=== PATIENT | male | born 1980 | race Caucasian/White ===

== ENCOUNTER 2017-06-16 20:12 | Emergency (ER) | payer OTHER ==
[~2017-06-16] VITALS: Ht 188 cm; Wt 112.0 kg
[~2017-06-16 20:12] MED LIST: APAP/CODEINE ELI5 M1 PO; MEDROLDOSEPACK PO; NAPROSYN500 M1 PO; NOHOMEMEDICATIONS; NORCO 5-325 TA1 EACH PO; PROAIR HFA8.5 GM INH; PROMETHAZINE-D120 ML PO; TOPROL XL25 MG PO; TRAMADOL 50 MG50 MG PO; XANAX 0.25 MG0.25 MG PO; ZPAK PO
[2017-06-16 20:18] VITALS: BP 134/84
[2017-06-16 20:59] LABS: INFLUENZA A ANTIGEN None Detected (None Detect); INFLUENZA B ANTIGEN None Detected (None Detect)
[2017-06-16] MEDS ORDERED: ZPAK PO (21:13)
[2017-06-16] MEDS ORDERED: PREDNISONE 20 M20 M1 PO (21:13)
== END 2017-06-16 21:20 | disposition home or self-care (01) ==
LOC: M.ERS 20:12
PROVIDERS: Family Medicine
DX: J06.9 Acute upper respiratory infection, unspecified (principal); I10 Essential (primary) hypertension; F41.9 Anxiety disorder, unspecified

== ENCOUNTER 2017-07-06 15:33 | Emergency (ER) | payer OTHER ==
[~2017-07-06] VITALS: Ht 188 cm; Wt 147.4 kg
[~2017-07-06 15:33] MED LIST changes: +PREDNISONE 20 M20 M1 PO
[2017-07-06 16:00] LABS: ABSOLUTE BASOPHILS 0.1 thou/uL (0.0-0.2); ABSOLUTE EOSINOPHILS 0.1 thou/uL (0.0-0.7); ABSOLUTE LYMPHOCYTES 2.5 thou/uL (0.8-5.3); ABSOLUTE MONOCYTES 0.9 thou/uL (0.0-1.2); ABSOLUTE NEUTROPHILS 3.3 thou/uL (1.6-8.1); BASOPHILS 1.2 %; EOSINOPHILS 1.3 %; HEMOGLOBIN 15.5 gm/dL (14.0-18.0); LYMPHOCYTES 36.5 %; MCHC 34.4 g/dL (28.0-37.0); MCV 87.2 fL (80.0-100.0); MONOCYTES 13.1 %; MPV 9.4 fl. (7.2-11.1); NUCLEATED RBCS 0 /100WBC; PLATELET COUNT* 225 thou/uL (150-400); POLYS 47.9 %; RBC 5.16 mil/uL (4.50-6.00); RDW-CV 13.4 % (10.5-14.5); WBC 6.8 thou/uL (4.0-11.0)
[2017-07-06 16:09] LABS: ANION GAP 6 mmol/L (7-16); APTT 28.9 Seconds (25.0-31.3); BUN 7 mg/dL (7-18); CALCIUM 9.2 mg/dL (8.5-10.1); CHLORIDE 105 mmol/L (98-107); CO2 30 mmol/L (21-32); CREATININE 0.8 mg/dL (0.6-1.3); GLUCOSE 85 mg/dL (70-99); POTASSIUM 3.9 mmol/L (3.5-5.1); PROTIME 10.2 Seconds (9.20-11.50); SODIUM 141 mmol/L (136-145)
[2017-07-06 16:19] LABS: ALBUMIN 3.7 g/dL (3.4-5.0); ALKALINE PHOSPHATASE 58 U/L (46-116); LIPASE 146 U/L (73-393); SGOT 25 U/L (15-37); SGPT 46 U/L (30-65); TOTAL BILIRUBIN 0.4 mg/dL (<0.1-1.0); TOTAL PROTEIN 7.4 g/dL (6.4-8.2); TROPONIN-I LEVEL <0.06 ng/mL (<0.06)
[2017-07-06 16:24] LABS: INFLUENZA A ANTIGEN None Detected (None Detect); INFLUENZA B ANTIGEN None Detected (None Detect)
[2017-07-06 16:50] VITALS: BP 136/64
--- NOTE | 2017-07-07 11:57 | EKG ---
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 : 1980 Requested By: Home Donovan Order Number: [id number] MD: Jason Aguilar Measurements Intervals [place] Rate: 80 P: 44 NM: 153 QRS: -22 QRSD: 91 T: 116 QT: 354 QTc: 409 Interpretive Statements Sinus rhythm LVH with secondary repolarization abnormality Borderline ST elevation, inferior leads No previous ECG available for comparison Electronically Signed On 07-07-2017 11:56:52 FOREIGN LANGUAGE TEACHER by Jason Aguilar [email or web address] <ELECTRONICALLY SIGNED> By: Jason Aguilar MD, [facility] 07/07/17 1156 1547 1547 Jason Aguilar MD, FACC /EPI
== END 2017-07-06 16:51 | disposition home or self-care (01) ==
LOC: M.ERS 15:33
PROVIDERS: Emergency Medicine
DX: R06.4 Hyperventilation (principal); F41.9 Anxiety disorder, unspecified; E78.00 Pure hypercholesterolemia, unspecified; F17.210 Nicotine dependence, cigarettes, uncomplicated

== ENCOUNTER 2018-04-05 21:18 | Emergency (ER) | payer OTHER ==
[~2018-04-05] VITALS: Ht 188 cm; Wt 136.1 kg
[2018-04-05 21:42] LABS: ABSOLUTE BASOPHILS 0.1 thou/uL (0.0-0.2); ABSOLUTE EOSINOPHILS 0.1 thou/uL (0.0-0.7); ABSOLUTE LYMPHOCYTES 3.7 thou/uL (0.8-5.3); ABSOLUTE NEUTROPHILS 3.8 thou/uL (1.6-8.1); BASOPHILS 1.4 %; EOSINOPHILS 1.2 %; HEMATOCRIT 45.3 % (42.0-52.0); HEMOGLOBIN 15.6 gm/dL (14.0-18.0); LYMPHOCYTES 42.8 %; MCH 30.6 pg (26.0-34.0); MCHC 34.4 g/dL (28.0-37.0); MONOCYTES 11.2 %; MPV 9.3 fl. (7.2-11.1); NUCLEATED RBCS 0 /100WBC; PLATELET COUNT* 229 thou/uL (150-400); POLYS 43.4 %; RBC 5.09 mil/uL (4.50-6.00); RDW-CV 13.1 % (10.5-14.5); WBC 8.7 thou/uL (4.0-11.0)
[2018-04-05 21:50] LABS: ANION GAP 6 mmol/L (7-16); BUN 8 mg/dL (7-18); CALCIUM 9.4 mg/dL (8.5-10.1); CHLORIDE 104 mmol/L (98-107); CO2 30 mmol/L (21-32); CREATININE 0.8 mg/dL (0.6-1.3); GLUCOSE 91 mg/dL (70-99); POTASSIUM 3.8 mmol/L (3.5-5.1); SODIUM 140 mmol/L (136-145)
[2018-04-05 22:01] LABS: ALBUMIN 3.6 g/dL (3.4-5.0); ALKALINE PHOSPHATASE 60 U/L (46-116); NT-PRO BRAIN NAT PEPTIDE 26 pg/mL (<300); SGOT 18 U/L (15-37); SGPT 38 U/L (30-65); TOTAL BILIRUBIN 0.4 mg/dL (<0.1-1.0); TOTAL PROTEIN 7.3 g/dL (6.4-8.2); TROPONIN-I LEVEL <0.06 ng/mL (<0.06)
[2018-04-05 22:17] LABS: PROTIME 10.2 Seconds (9.20-11.50)
[2018-04-05 22:50] VITALS: BP 144/78
--- NOTE | 2018-04-06 12:37 | EKG ---
[place] [address] ELECTROCARDIOGRAM REPORT Name: DESMOND TORRES Room: [facility] William#: [id number] Admission: 04/05/18 Attend Phys: Discharge: 04/05/18 Date of : 82 Report #: [id number] THIS REPORT FOR: //name// 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 : 1980 Requested By: Nona Costello Order Number: [id number] MD: Jason Aguilar Measurements Intervals [place] Rate: 83 P: 34 MS: 145 QRS: 33 QRSD: 105 T: 37 QT: 368 QTc: 433 Interpretive Statements Sinus rhythm Compared to ECG 07/06/2017 15:47:53 Left ventricular hypertrophy no longer present ST (T wave) deviation no longer present Electronically Signed On 04-06-2018 12:37:42 GRIP BOSS by Jason Aguilar [email or web address] <ELECTRONICALLY SIGNED> By: Jason Aguilar MD, [facility] 04/06/18 1237 20 20 Jason Aguilar MD, FACC /EPI
== END 2018-04-05 22:50 | disposition home or self-care (01) ==
LOC: M.ERS 21:18
PROVIDERS: Emergency Medicine
DX: R07.89 Other chest pain (principal); F41.9 Anxiety disorder, unspecified; F17.210 Nicotine dependence, cigarettes, uncomplicated

== ENCOUNTER 2019-01-10 20:12 | Emergency (ER) | payer OTHER ==
[~2019-01-10] VITALS: Ht 188 cm; Wt 181.4 kg
[2019-01-10 21:05] LABS: ABSOLUTE BASOPHILS 0.1 thou/uL (0.0-0.2); ABSOLUTE EOSINOPHILS 0.2 thou/uL (0.0-0.7); ABSOLUTE LYMPHOCYTES 3.2 thou/uL (0.8-5.3); ABSOLUTE MONOCYTES 1.5 thou/uL (0.0-1.2); ABSOLUTE NEUTROPHILS 6.1 thou/uL (1.6-8.1); BASOPHILS 1.1 %; EOSINOPHILS 1.9 %; HEMOGLOBIN 15.4 gm/dL (14.0-18.0); LYMPHOCYTES 28.6 %; MCH 30.4 pg (26.0-34.0); MCHC 34.2 g/dL (28.0-37.0); MONOCYTES 13.6 %; MPV 9.6 fl. (7.2-11.1); NUCLEATED RBCS 0 /100WBC; PLATELET COUNT* 193 thou/uL (150-400); POLYS 54.8 %; RBC 5.06 mil/uL (4.50-6.00); RDW-CV 13.1 % (10.5-14.5); WBC 11.2 thou/uL (4.0-11.0)
[2019-01-10 21:14] LABS: URINE BILIRUBIN NEGATIVE (Negative); URINE BLOOD NEGATIVE (Negative); URINE CLARITY CLEAR; URINE COLOR YELLOW; URINE GLUCOSE-RANDOM NEGATIVE (Negative); URINE KETONES NEGATIVE (Negative); URINE LEUKOCYTES-REFLEX NEGATIVE (Negative); URINE NITRITE-REFLEX NEGATIVE (Negative); URINE PROTEIN NEGATIVE (Negative); URINE UROBILINOGEN 0.2 E.U./dl (0.2-1.0)
[2019-01-10 21:21] LABS: CALCIUM 8.8 mg/dL (8.5-10.1); CREATININE 0.8 mg/dL (0.6-1.3); POTASSIUM 3.8 mmol/L (3.5-5.1)
[2019-01-10 21:29] LABS: ALBUMIN 3.4 g/dL (3.4-5.0); TOTAL BILIRUBIN 0.4 mg/dL (<0.1-1.0); TOTAL PROTEIN 6.8 g/dL (6.4-8.2)
[2019-01-10] MEDS ORDERED: NORCO 5-325 TA1 EAC1 PO (22:35)
[2019-01-10 22:45] VITALS: BP 133/84
== END 2019-01-10 22:46 | disposition home or self-care (01) ==
LOC: M.ERS 20:12
PROVIDERS: Physician Assistant
DX: R10.31 Right lower quadrant pain (principal); F41.9 Anxiety disorder, unspecified

== ENCOUNTER 2019-10-23 20:17 | Emergency (ER) | payer OTHER ==
[~2019-10-23] VITALS: Ht 188 cm; Wt 194.6 kg
[~2019-10-23 20:17] MED LIST changes: +NORCO 5-325 TA1 EAC1 PO
[2019-10-23 20:58] LABS: ABSOLUTE BASOPHILS 0.1 thou/uL (0.0-0.2); ABSOLUTE EOSINOPHILS 0.2 thou/uL (0.0-0.7); ABSOLUTE MONOCYTES 0.9 thou/uL (0.0-1.2); ABSOLUTE NEUTROPHILS 3.2 thou/uL (1.6-8.1); BASOPHILS 1.4 %; EOSINOPHILS 2.1 %; HEMATOCRIT 43.7 % (42.0-52.0); HEMOGLOBIN 15.1 gm/dL (14.0-18.0); LYMPHOCYTES 40.7 %; MCH 30.9 pg (26.0-34.0); MCHC 34.6 g/dL (28.0-37.0); MCV 89.4 fL (80.0-100.0); MONOCYTES 11.8 %; MPV 9.2 fl. (7.2-11.1); NUCLEATED RBCS 0 /100WBC; PLATELET COUNT* 205 thou/uL (150-400); RBC 4.88 mil/uL (4.50-6.00); RDW-CV 13.3 % (10.5-14.5); WBC 7.3 thou/uL (4.0-11.0)
[2019-10-23 21:08] LABS: CALCIUM 8.5 mg/dL (8.5-10.1); CREATININE 0.8 mg/dL (0.6-1.3); POTASSIUM 4.1 mmol/L (3.5-5.1)
[2019-10-23 21:18] LABS: ALBUMIN 3.3 g/dL (3.4-5.0); MAGNESIUM 1.7 mg/dL (1.8-2.4); TOTAL BILIRUBIN 0.3 mg/dL (<0.1-1.0); TOTAL PROTEIN 7.1 g/dL (6.4-8.2)
[2019-10-23 21:38] LABS: URINE BILIRUBIN NEGATIVE (Negative); URINE BLOOD NEGATIVE (Negative); URINE CLARITY CLEAR; URINE COLOR YELLOW; URINE GLUCOSE-RANDOM NEGATIVE (Negative); URINE KETONES NEGATIVE (Negative); URINE LEUKOCYTES-REFLEX NEGATIVE (Negative); URINE NITRITE-REFLEX NEGATIVE (Negative); URINE PROTEIN NEGATIVE (Negative); URINE SPECIFIC GRAVITY 1.015 (1.005-1.030); URINE UROBILINOGEN 0.2 E.U./dl (0.2-1.0)
[2019-10-23] MEDS ORDERED: FLEXERIL PO (23:38)
[2019-10-23] MEDS ORDERED: IBUPROFEN 800800 M1 PO (23:38)
[2019-10-23 23:51] VITALS: BP 146/72
--- NOTE | 2019-10-24 08:47 | EKG ---
[place] [address] ELECTROCARDIOGRAM REPORT Name: DESMOND TORRES Room: [facility]#: [id number] Admission: 10/23/19 Attend Phys: Discharge: 10/23/19 Date of : 82 Date of Service: 10/23/192026 Report #: [id number] THIS REPORT FOR: //name// [facility] ED Test Date: 2019-10-23 Test Time: 20:27:38 Pat Name: DESMOND TORRES Department: Room: Gender: Food Safety Auditor: KESHIA : 1980 Requested By: Spencer Stark Order Number: [id number] MD: Jose Hearn Measurements Intervals [place] Rate: 84 P: 19 OK: 152 QRS: 28 QRSD: 104 T: 26 QT: 377 QTc: 446 Interpretive Statements Sinus rhythm Compared to ECG 04/05/2018 21:21:50 No significant changes Electronically Signed On 10-24-2019 8:45:52 CDT by Jose Hearn [email or web address] <ELECTRONICALLY SIGNED> By: Jose Hearn MD, [facility] 0545 26 26 Jose Hearn MD, [facility] /EPI
== END 2019-10-23 23:51 | disposition home or self-care (01) ==
LOC: M.ERS 20:17
PROVIDERS: Emergency Medicine Emergency Medical Services
DX: M79.672 Pain in left foot (principal); M79.671 Pain in right foot; R07.89 Other chest pain; F41.9 Anxiety disorder, unspecified

== ENCOUNTER 2020-03-28 15:58 | Emergency (ER) | payer OTHER, MEDICAID ==
[~2020-03-28] VITALS: Ht 188 cm; Wt 206.8 kg
[~2020-03-28 15:58] MED LIST changes: +FLEXERIL PO; +IBUPROFEN 800800 M1 PO
[2020-03-28 16:10] VITALS: BP 144/76
[2020-03-28] MEDS ORDERED: LIPITOR 20 MG T20 M1 PO (16:17)
[2020-03-28] MEDS ORDERED: CARVEDILOL12.5 MG PO (16:17)
[2020-03-28] MEDS ORDERED: ASA81BEC PO (16:17)
[2020-03-28] MEDS ORDERED: LASIX 40 MG TAB40 MG PO (16:17)
[2020-03-28] MEDS ORDERED: PROAIR HFA8.5 GM INH (16:28)
== END 2020-03-28 16:52 | disposition home or self-care (01) ==
LOC: M.ERS 15:58
DX: U07.1 COVID-19 (principal); F17.210 Nicotine dependence, cigarettes, uncomplicated

== ENCOUNTER 2021-07-24 11:26 | Observation (INO) | payer OTHER, MEDICAID ==
[~2021-07-24] VITALS: Ht 188 cm; Wt 217.7 kg
[~2021-07-24 11:26] MED LIST changes: +ASA81BEC PO; +CARVEDILOL12.5 MG PO; +LASIX 40 MG TAB40 MG PO; +LIPITOR 20 MG T20 M1 PO
[2021-07-24 11:34] VITALS: BP 137/67
[2021-07-24 12:13] LABS: ABSOLUTE BASOPHILS 0.1 thou/uL (0.0-0.2); ABSOLUTE EOSINOPHILS 0.1 thou/uL (0.0-0.7); ABSOLUTE LYMPHOCYTES 2.4 thou/uL (0.8-5.3); ABSOLUTE MONOCYTES 0.7 thou/uL (0.0-1.2); ABSOLUTE NEUTROPHILS 4.1 thou/uL (1.6-8.1); BASOPHILS 1.2 %; EOSINOPHILS 1.3 %; HEMATOCRIT 47.4 % (42.0-52.0); HEMOGLOBIN 16.1 gm/dL (14.0-18.0); LYMPHOCYTES 32.7 %; MCH 30.6 pg (26.0-34.0); MONOCYTES 9.2 %; NUCLEATED RBCS 0 /100WBC; PLATELET COUNT* 209 thou/uL (150-400); POLYS 55.6 %; RBC 5.26 mil/uL (4.50-6.00); WBC 7.5 thou/uL (4.0-11.0)
[2021-07-24 12:26] LABS: CALCIUM 9.1 mg/dL (8.5-10.1); POTASSIUM 4.2 mmol/L (3.5-5.1)
[2021-07-24 12:36] LABS: ALBUMIN 3.5 g/dL (3.4-5.0); MAGNESIUM 1.7 mg/dL (1.8-2.4); TOTAL BILIRUBIN 0.6 mg/dL (<0.1-1.0); TOTAL PROTEIN 7.2 g/dL (6.4-8.2)
[2021-07-24 14:45] VITALS: BP 134/96
[2021-07-24 18:45] VITALS: BP 131/78
[2021-07-24 20:40] VITALS: BP 121/71
[2021-07-24 21:00] VITALS: BP 145/77
[2021-07-24] MEDS ORDERED: TORSEMIDE100 MG PO ×2 (21:57→21:58)
[2021-07-24] MEDS ORDERED: COREG25 M1 PO (22:00)
[2021-07-25] VITALS: BP 112/69; BP 135/88
[2021-07-25 04:00] VITALS: BP 99/67
[2021-07-25 05:24] LABS: ABSOLUTE BASOPHILS 0.1 thou/uL (0.0-0.2); ABSOLUTE EOSINOPHILS 0.1 thou/uL (0.0-0.7); ABSOLUTE LYMPHOCYTES 3.2 thou/uL (0.8-5.3); ABSOLUTE MONOCYTES 0.9 thou/uL (0.0-1.2); ABSOLUTE NEUTROPHILS 3.9 thou/uL (1.6-8.1); EOSINOPHILS 1.5 %; HEMOGLOBIN 15.3 gm/dL (14.0-18.0); LYMPHOCYTES 38.4 %; MCH 30.6 pg (26.0-34.0); MCHC 33.9 g/dL (28.0-37.0); MCV 90.1 fL (80.0-100.0); MONOCYTES 11.3 %; MPV 9.5 fl. (7.2-11.1); NUCLEATED RBCS 0 /100WBC; PLATELET COUNT* 187 thou/uL (150-400); POLYS 47.8 %; RBC 4.99 mil/uL (4.50-6.00); RDW-CV 14.4 % (10.5-14.5); WBC 8.2 thou/uL (4.0-11.0)
[2021-07-25 05:25] LABS: CALCIUM 8.9 mg/dL (8.5-10.1); CREATININE 0.8 mg/dL (0.6-1.3); POTASSIUM 3.6 mmol/L (3.5-5.1)
[2021-07-25 08:00] VITALS: BP 136/93
[2021-07-25] MEDS ORDERED: MAG-OXIDE400 MG PO (10:25)
[2021-07-25 11:20] VITALS: BP 127/75
--- NOTE | 2021-07-25 11:20 | EKG ---
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 Manager: JOSE : 1980 Requested By: Spencer Stark Order Number: [id number] MD: Jason Aguilar Measurements Intervals [place] Rate: 154 P: 0 UT: 39 QRS: -53 QRSD: 156 T: 127 QT: 344 QTc: 551 Interpretive Statements wide complex tachycardia Left bundle branch block Compared to ECG 10/23/2019 20:27:38 Left bundle-branch block now present Sinus rhythm no longer present Electronically Signed On 07-25-2021 11:20:21 CUSTOMER SERVICE CASHIER by Jason Aguilar [email or web address] <ELECTRONICALLY SIGNED> By: Jason Aguilar MD, [facility] 07/25/21 1120 1131 1131 Jason Aguilar MD, [facility] /EPI
--- NOTE | 2021-07-25 11:21 | EKG ---
[place] [address] ELECTROCARDIOGRAM REPORT Name: DESMOND TORRES [address] [id number] Admission: 07/24/21 Attend Phys: Mariano Glynn, Discharge: Date of : 82 Date of Service: 07/24/21 1141 Report #: [id number] THIS REPORT FOR: //name// [facility] ED Test Date: 2021-07-24 Test Time: 11:41:34 Pat Name: DESMOND TORRES Department: Room: [facility] Gender: M Shearing Shed Hand: JOSE : 1980 Requested By: Spencer Stark Order Number: [id number] MD: Jason Aguilar Measurements Intervals [place] Rate: 88 P: 66 TN: 173 QRS: -30 QRSD: 91 T: 117 QT: 349 QTc: 423 Interpretive Statements Sinus rhythm Probable left atrial enlargement Left axis deviation Abnormal R-wave progression, early transition Repol abnrm, severe global ischemia (LM/MVD) Compared to ECG 07/24/2021 11:31:26 wide complex tachycardia no longer present Electronically Signed On 07-25-2021 11:21:25 SANITATION TRUCK CLEANER by Jason Aguilar [email or web address] <ELECTRONICALLY SIGNED> By: Jason Aguilar MD, [facility] 07/25/21 1121 114 114 Jason Aguilar MD, [facility] /EPI
[2021-07-25 11:35] VITALS: BP 127/75
--- NOTE | 2021-07-26 11:39 | CON ---
[address] [address] CONSULTATION Name: DESMOND TORRES Room: [address] Kay Thomas#: [id number] Admission: 07/24/21 Attend Phys: Mariano Glynn MD Discharge: 07/25/21 Date of : 82 Report #: [id number] THIS REPORT FOR: cc: FAM - No family physician/PCP FAM - No family physician/PCP Jason Aguilar MD [facility] ~ DATE OF CONSULTATION: 07/25/2021 CARDIOLOGY CONSULTATION HISTORY OF PRESENT ILLNESS: The patient is a 40-year-old single white male who I was asked to see in the hospital today after he was noted to have a tachycardia. The history is obtained from the patient. There are no old records available. The patient has never been here to [place] before. 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 He eventually underwent radiofrequency ablation in [place], [place] in 2003. Since that time, he has had only rare episodes of skipped heartbeat, but no prolonged palpitations or syncope. However, yesterday morning, he woke up at 10 in the morning, noted his heart was racing, felt somewhat lightheaded, noted some tightness in his chest, but denied any shortness of breath. Family members finally brought him to the Emergency Room. He was noted to be in tachycardia. He resolved spontaneously. He was admitted overnight for further evaluation and treatment. He denies any recurrent chest pain, shortness of breath, fever. PAST MEDICAL HISTORY: He has had no surgical procedures. He does have a history of hypertension and hyperlipidemia. CURRENT MEDICATIONS: Carvedilol, Lipitor, torsemide for swelling. ALLERGIES: He has no known drug allergies. FAMILY HISTORY: Negative for sudden . SOCIAL HISTORY: He is engaged and lives in [place], [place] with his fiancee. 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 He is no longer working anymore. Smokes half pack of cigarettes a day. No alcohol abuse. No caffeine use. No drug use. REVIEW OF SYSTEMS: He is extremely overweight. He is 6 feet 2 inches, 480 pounds. No history of stroke. He does have sleep apnea and wears CPAP. No history of asthma, liver disease, kidney disease, cancer, chronic skin condition. He does have a history of depression, saw a psychiatrist in the past. PHYSICAL EXAMINATION: [address] [place] [address] CONSULTATION Name: DESMOND TORRES [place] Room: [address] Kay Thomas#: [id number] Admission: 07/24/21 Attend Phys: Mariano Glynn MD Discharge: 07/25/21 Date of : 82 Report #: [id number] GENERAL: Revealed a young white male, lying in bed, he appeared in no distress. VITAL SIGNS: Blood pressure of 130/80, pulse 70, he is afebrile. HEENT: He was anicteric. Conjunctivae pink. Mucous membranes moist. NECK: Neck veins are difficult to assess due to obesity. Neck was supple. CHEST: Clear to auscultation. CARDIAC: Regular rate and rhythm without murmur. ABDOMEN: Obese. EXTREMITIES: Had trace edema. SKIN: Cool and dry. NEUROLOGIC: Nonfocal. LABORATORY DATA: His ECG when he arrived in the Emergency Room yesterday showed a wide complex tachycardia at 150 beats per minute with a left bundle branch block morphology. After he converted, ECG showed a sinus rhythm, short NV interval. There were delta waves noted with an incomplete right bundle branch block consistent with preexcitation pattern. He remained in sinus rhythm overnight. Workup in the Emergency Room last night, he had a portable chest x-ray that showed normal heart size and clear lung rocha. LABORATORY DATA: Potassium 3.6, creatinine 0.8, glucose 83. Liver function studies were normal. His high sensitivity troponin was 12 on admission, went up to 139. BNP was 51. His hemoglobin 15.3. His COVID antigen stat test was negative. IMPRESSION AND RECOMMENDATIONS: 1. Cmbmt-Vcrgicemg-Kqiwd syndrome. 2. Supraventricular tachycardia. Previous ablation. I discussed admitting the patient to switch from carvedilol to sotalol, although the patient is not interested in being admitted at this time. He preferred to be discharged to follow up with his wet pour mixer at [place]. 3. Hypertension. The patient is on a beta darrel. 4. Hyperlipidemia. The patient is on a statin drug. 5. Venous stasis. The patient is on diuretics. 6. Tobacco abuse. 7. Morbid obesity. 8. Sleep apnea. 9. History of depression. <ELECTRONICALLY SIGNED> By: Jason Aguilar MD, FACC 07/26/21 1139 0721 [id number] Aguilar MD, FAC /nt
== END 2021-07-25 12:25 | disposition home or self-care (01) ==
LOC: M.ERS 11:26 → M.TBA-ER 14:35 → M.2W 21:46
PROVIDERS: Emergency Medicine Emergency Medical Services; ADMIT Internal Medicine; ATTEND Internal Medicine
DX: I47.1 Supraventricular tachycardia (principal); Z20.822 Contact with and (suspected) exposure to COVID-19; F41.9 Anxiety disorder, unspecified; G47.33 Obstructive sleep apnea (adult) (pediatric); F17.200 Nicotine dependence, unspecified, uncomplicated; I10 Essential (primary) hypertension; E66.01 Morbid (severe) obesity due to excess calories; Z98.890 Other specified postprocedural states; Z79.899 Other long term (current) drug therapy; Z23 Encounter for immunization